=== PATIENT | female | born 1980 | race Caucasian/White ===

== ENCOUNTER 2019-05-14 16:02 | Emergency (ER) | payer BC, OTHER ==
[2019-05-14 16:56] LABS: Hemoglobin 7.8 g/dL (12.0-16.0); Mean Corpuscular HGB CONC 28.5 g/dL (32.0-36.0); Mean Corpuscular Hemoglobin 18.9 pg (27.0-31.0); Mean Corpuscular Volume 66.1 fL (78.0-98.0); Mean Platelet Volume 8.3 fL (7.4-10.4); Platelet Count 263 thou/uL (130-400); RBC Distribution Width 18.2 % (11.5-14.5); Red Blood Cell (RBC) Count 4.15 mill/uL (4.20-5.40); White Blood Cell (WBC) Count 6.5 thou/uL (4.8-10.8)
[2019-05-14 17:05] LABS: ALT (SGPT) 14 U/L (8-55); AST (SGOT) 17 U/L (5-34); Albumin 4.1 g/dL (3.5-5.0); Alkaline Phosphatase 95 U/L (40-110); Anion Gap 17 mmol/L (10-20); BUN (Urea Nitrogen) 10 mg/dL (7.0-18.7); Bilirubin, Total 0.4 mg/dL (0.2-1.2); Calc. Creatinine Clearance 0 mL/min (70-130); Calcium 9.3 mg/dL (7.8-10.44); Carbon Dioxide 22 mmol/L (22-29); Chloride 104 mmol/L (98-107); Estimated GFR-MDRD 90; Globulin 3.6 g/dL (2.4-3.5); Glucose 94 mg/dL (70-105); Potassium 3.5 mmol/L (3.5-5.1); Protein, Total 7.7 g/dL (6.0-8.3); Sodium 139 mmol/L (136-145)
[2019-05-14 17:13] LABS: #Basophils 0.1 thou/uL (0.0-0.2); #Eosinphils 0.1 thou/uL (0.0-0.7); #Lymphocytes 0.7 thou/uL (1.20-3.40); #Monocytes 0.5 thou/uL (0.11-0.59); #Neutrophils 5.2 thou/uL (1.40-6.50); %Basophils 1.1 % (0.0-1.0); %Lymphocytes 10.8 % (21.0-51.0); %Neutrophils 80.2 % (42.0-75.0); Anisocytosis SLIGHT = 6-15 cells (100X) (0-5/hpf); Elliptocytes SLIGHT = 2-5 cells (100X) (0-1/hpf); Hypochromia SLIGHT = 6-15 cells (100X) (0-5/hpf); MDiff Complete? YES; Microcytosis SLIGHT = 6-15 cells (100X) (0-5/hpf); Ovalocytes SLIGHT = 2-5 cells (100X) (0-1/hpf); Platelet Morphology Comment Appears Adequate; Polychromasia SLIGHT = 2-3 cells (100X) (0-2/hpf)
--- NOTE | 2019-05-14 17:50 | RAD ---
EXAM: Two views chest PROVIDED CLINICAL HISTORY: Fever COMPARISON: 06/24/2015 FINDINGS: Cardiac silhouette and pulmonary vasculature are within normal limits. The lungs are clear. The osse ous structures have a normal appearance. Surgical clips overlie the left upper quadrant. There has been no significant interval change from prior exam. IMPRESSION: No acute cardiopulmonary process.
[2019-05-14] MEDS ORDERED: Ibuprofen 800 MG TAB ONE (18:13)
[2019-05-14] MEDS ORDERED: Acetaminophen 500 MG TAB ONE (18:13)
== END 2019-05-14 18:40 | disposition home or self-care (01) ==
LOC: SCSER 16:02
DX: R50.9 Fever, unspecified (principal); D64.9 Anemia, unspecified; M79.10 Myalgia, unspecified site; E78.5 Hyperlipidemia, unspecified; I10 Essential (primary) hypertension; Z79.899 Other long term (current) drug therapy
CPT/HCPCS: 71046; 80053; 83605; 85025; 87040; 96360

== ENCOUNTER 2020-02-17 12:31 | Emergency (ER) | payer OTHER ==
--- NOTE | 2020-02-18 06:58 | CON ---
DATE OF CONSULTATION: 02/17/2020 CHIEF COMPLAINT: Possible food impaction. HISTORY OF PRESENT ILLNESS: Ms. Winchester is a 39-year-old female, who is generally healthy, who presented to [facility] ER earlier this morning with possible food impaction. She reportedly ate a [employer] steak yesterday while working. Since that time, she felt as if there was something hanging with swallowing in the mid chest area. However, she can clear her saliva. She has no pain with swallowing other than discomfort. She denies having any nausea or vomiting. There is no abdominal pain. The patient since then had tried eating pulverized crackers and cheese and drank sodas without any regurgitation. She was sent from [facility] to [facility] ER for possible food impaction. However, at the time of the interview, the patient can drink water rather freely without any difficulty. She denies having had any previous dysphagia. She had a gastric sleeve in 2014. She was profoundly anemic with hemoglobin down to 7 last year and was put on iron supplement with subsequent increasing hemoglobin to 11. She denies any overt GI bleeding. PAST MEDICAL HISTORY: 1. Gastric sleeve. 2. Severe anemia, responded well to iron therapy. ALLERGIES: INCLUDE; 1. CODEINE. 2. AMOXICILLIN. 3. SULFA. 4. TETRACYCLINE. MEDICATIONS: Include; 1. Multivitamin. 2. Fluticasone nasal spray. 3. Iron sulfate. SOCIAL HISTORY: The patient has no tobacco or alcohol usage. FAMILY HISTORY: Negative for GI problem, liver disease, or GI malignancy. PHYSICAL EXAMINATION: GENERAL: She is alert, conversant, sitting up in bed, in no distress. HEENT: Anicteric sclerae. Oropharynx is clear and moist. CV: Normal S1, S2. Regular rate and rhythm. CHEST: Breath sounds. ABDOMEN: Soft and nontender. No distention. No tympany. She has active bowel sounds. EXTREMITIES: No edema. LABORATORY DATA: There is no laboratory. ASSESSMENT: 1. The patient does not appear to have any food impaction at the present time as she can swallow and handle secretion and liquids very well. It is conceivable that she may have some mucosal disruption or inflammation that caused the sensation when she swallows, but not a true obstruction. There is no need for emergent endoscopy at the present time. 2. History of iron-deficiency anemia, multifactorial. Responded to oral iron therapy. RECOMMENDATIONS: 1. We will get COVID-19 testing today. 2. Schedule outpatient EGD. 3. Full liquid to clear liquid until then. Job ID: [id number]
[2020-02-18 11:46] LABS: SARS-CoV-2 MS2 Positive; SARS-CoV-2 N Gene Negative; SARS-CoV-2 S Gene Negative; SARS-CoV-2 by NAA Not Detected (NotDetected); SARS-CoV-2 orf1ab Negative
== END 2020-02-17 13:59 | disposition home or self-care (01) ==
LOC: ERS 12:31
DX: K20.9 Esophagitis, unspecified (principal); I10 Essential (primary) hypertension; D64.9 Anemia, unspecified; E78.5 Hyperlipidemia, unspecified; Z79.899 Other long term (current) drug therapy
CPT/HCPCS: 87635; 99284; U0003

== ENCOUNTER 2021-07-19 08:45 | Outpatient (CLI) | payer OTHER | END 2021-07-19 08:46 | disposition home or self-care (01) | LOC: BICRAD 08:45 | PROVIDERS: ATTEND Nurse Practitioner Family | DX: S46.211A Strain of muscle, fascia and tendon of other parts of biceps, right arm, initial encounter (principal); S43.51XA Sprain of right acromioclavicular joint, initial encounter ==